=== PATIENT | male | born 1985 | race African-American/Black ===

== ENCOUNTER 2017-12-20 01:06 | Emergency (ER) | payer OTHER ==
[2017-12-20 01:16] VITALS: BP 127/88; PULSE 118; TEMP 98; BMI 35.2
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
== END 2017-12-20 02:55 | disposition home or self-care (01) ==
LOC: JER 01:06
PROC: 0HQHXZZ Repair Right Upper Leg Skin, External Approach (ICD-10-PCS; principal; 2017-12-20)
DX: S71.111A Laceration without foreign body, right thigh, initial encounter (principal); X99.1XXA Assault by knife, initial encounter; Y93.89 Activity, other specified; Y92.89 Other specified places as the place of occurrence of the external cause; Y99.8 Other external cause status
CPT/HCPCS: 12002; 99282-25